=== PATIENT | female | born 1945 | race American Indian/Alaskan Native ===

== ENCOUNTER 2016-09-21 12:46 | Day surgery (SDC) | payer OTHER ==
[2016-09-06 13:52] VITALS: BMI 34.0
[2016-09-21] MEDS ORDERED: Nitroglycerin 50mg in D5W 50 MG/250 ML BOTTLE IV ONE (13:11)
[2016-09-21] MEDS ORDERED: Iodixanol 320 mg/ml 150 ml Bottle IV ONE (13:11)
[2016-09-21] MEDS ORDERED: Iodixanol 320 MG/ML 100 ML BOTTLE IV ONE (13:11)
[2016-09-21] MEDS ORDERED: Iohexol 350mgl/ml 50 ML ONE (13:11)
[2016-09-21] MEDS ORDERED: Lidocaine 2% Inj (20ml) ONE (13:11)
[2016-09-21] MEDS ORDERED: Midazolam 2 MG/2 ML VIAL ONE (14:37)
--- NOTE | 2016-09-21 16:47 | CP.PCM.PN ---
Subjective - Date & Time of Evaluation Date of Evaluation: 09/21/16 Time of Evaluation: 16:30 - Subjective Subjective: Patient was brought to [facility] for management of CAD and NSTEMI. Patient is s/p L fem-pop bypass. Initial access from right radial artery was attempted. No guidewires would pass through the proximal radial artery, likely due to small caliber or occlusions. Right femoral access was attempted, however again no guidewires would pass through likely due to femoral artery occlusion. Although brachial artery pulse is palpable, this supplies the single blood supply to the arm. Therefore access is not recommended due to risk of vascular complications such as occlusion and compartment syndrome. Therefore due to absence of current angina, I recommend continued aggressive medical therapy. cardiac catheterization could not be performed due to inability of guidewire passage due to severe vascular disease. i discussed all aspects with the patient and her nephew.
[2016-09-21 18:20] VITALS: BP 145/50; PULSE 69; RESP 19
== END 2016-09-21 19:40 | disposition short-term general hospital (02) ==
LOC: CATH 12:46 → 2RSO 16:40 → CATH 19:40
PROVIDERS: ATTEND Internal Medicine Cardiovascular Disease
DX: I21.4 Non-ST elevation (NSTEMI) myocardial infarction (principal); I25.10 Atherosclerotic heart disease of native coronary artery without angina pectoris; I77.1 Stricture of artery; Z53.09 Procedure and treatment not carried out because of other contraindication
CPT/HCPCS: 93458; 99152; 99153; C1713; C1769 ×2; C1894; J1644 ×2; J2250; J3010; J7030